=== PATIENT | male | born 1965 | race Native Hawaiian/Other Pacific Islander ===

== ENCOUNTER 2024-01-19 03:08 | Emergency (ER) | payer MEDICAID, SELFPAY ==
[2024-01-19 03:10] VITALS: BMI 24.1
[2024-01-19 03:18] VITALS: BP 168/91; PULSE 78; RESP 18; TEMP 37.1; O2SAT 98
--- NOTE | 2024-01-19 03:48 | XR_ITS ---
Examination: Toes, right foot first digit 3 views Technique: Toes AP oblique lateral 3 views first digit right foot Date and time of exam: January 19, 2024 0409 hrs. Indications: Injury to the foot today with first digit pain. Findings: No fracture or dislocation Impression: No fracture or dislocation
--- NOTE | 2024-01-19 03:55 | PD.EDANKLE ---
Lower Extremity Injury RME/HPI General Chief Complaint: Ankle/Foot Injury Stated Complaint: RT TOE PAIN X 10 MIN Time Seen by Provider: 01/19/24 03:46 Arrival date/time: 01/19/24 03:08 58M with history of HTN, MS, and DM presents to ED with R toe pain after he stubbed it. Limitations: no limitations Related Data Home Medications ?Medication ?Instructions ?Recorded ?Confirmed fingolimod 0.5 mg capsule (Gilenya) 0.5 mg PO QDAY ##0 03/15/17 01/08/20 gabapentin 300 mg capsule 300 mg PO TID #0 caps 03/15/17 01/08/20 glimepiride 1 mg tablet (Amaryl) 1 mg PO DAILY #0 tabs 03/15/17 01/08/20 metformin 500 mg tablet 500 mg PO BIDAC #0 tabs 03/15/17 01/08/20 (Glucophage) cholecalciferol (vitamin D3) 125 125 mcg PO QDAY 01/08/20 01/08/20 mcg (5,000 unit) tablet (Vitamin D3) cyanocobalamin (vitamin B-12) 1,000 mcg PO QDAY 01/08/20 01/08/20 1,000 mcg tablet (Vitamin B-12) lisinopril 2.5 mg tablet 2.5 mg PO QDAY 01/08/20 01/08/20 loratadine 10 mg tablet 10 mg PO QDAY 01/08/20 01/08/20 Previous Rx's ?Medication ?Instructions ?Recorded sulfamethoxazole 800 1 tab PO Q12H #20 tabs 12/24/19 mg-trimethoprim 160 mg tablet (Bactrim DS) docusate sodium 100 mg capsule 100 mg PO BID #30 caps 01/10/20 (Colace) hydrocodone 5 mg-acetaminophen 325 1 tab PO Q8H PRN pain #15 tabs 01/10/20 mg tablet ([place]) ibuprofen 600 mg tablet 600 mg PO Q8H PRN pain (scale 01/10/20 score 4-6) #15 tabs doxycycline monohydrate 100 mg 100 mg PO BID 7 days #14 tabs 01/19/24 tablet Allergies Allergy/AdvReac Type Severity Reaction Status Date / Time Penicillins Allergy Severe Anaphylaxis Verified 01/08/20 08:29 Review of Systems Review of Systems Systems Reviewed: All systems reviewed, normal except as documented Constitutional Constitutional: Reports system reviewed and no additional complaints, except as documented, Denies fever(s) and Denies headache(s) ENT Ears, Nose, Mouth, and Throat: Denies disequilibrium and Denies headache(s) Cardiovascular Cardiovascular: Reports system reviewed and no additional complaints, except as documented, Denies chest pain and Denies dyspnea Respiratory Respiratory: Reports system reviewed and no additional complaints, except as documented, Denies cough and Denies dyspnea Gastrointestinal Gastrointestinal: Reports system reviewed and no additional complaints, except as documented, Denies abdominal pain, Denies nausea and Denies vomiting Musculoskeletal Musculoskeletal: Reports as per HPI and Reports arthralgias Neurologic Neurologic: Reports system reviewed and no additional complaints, except as documented, Denies confusion, Denies disequilibrium and Denies headache(s) Psychiatric Psychiatric: Denies confusion Past Medical History Past Medical History NEUROLOGIC: Positive Neurological Disorders and Multiple Sclerosis (PATIENT HAS DIAGNOSIS OF MS); Negative Seizures or Amyotrophic Lateral Sclerosis (ALS/Verenice Gehrig's) CARDIAC: Positive Cardiac Disorders and Hypertension (HTN); Negative Congestive Heart Failure RESPIRATORY: Negative Chronic Obstructive Pulmonary Disease (COPD) GASTROINTESTINAL: Negative Gastrointestinal Disorders or Hepatitis GENITOURINARY: Negative Genitourinary Disorders or Renal Disease ENDOCRINE: Positive Endocrine Disorders and Diabetes Mellitus Type 2 (ON MEDICATIONS); Negative Diabetes Mellitus Type 1 HEMATOLOGIC: Negative Blood Disorders, Anemia or Clotting Problems PSYCHO/SOCIAL: Negative Depression or Anxiety OTHER HISTORY: Negative Autoimmune Disease, Falls, Blood Transfusions, Blood Transfusion Reaction, Anesthesia Reactions, MRSA, Chicken Pox, Measles, Mumps, Clostridium Difficile or Cancer Family History FAMILY HISTORY: Negative Family Respiratory Disorders, Family Cardiac Disorders, Family Gastrointestinal Problems, Family Cancer, Family Surgery or Family Anesthesia Reaction Surgical History SURGICAL: Negative Cardiac Surgery, Endocrine Surgery, Ear Surgery, Abdominal Surgery, Joint Replacement or Neurologic Surgery Social History SMOKING STATUS: Current every day smoker ED Exam General Limitations: Present no limitations General appearance: Present alert and in no apparent distress Head Head exam: Present atraumatic Eye Eye exam: Present normal appearance, PERRL and EOMI ENT ENT exam: Present normal exam, normal oropharynx and mucous membranes moist Neck Neck exam: Present normal inspection, full ROM and trachea midline Chest Chest inspection: Present normal inspection and symmetric chest wall rise Respiratory Respiratory exam: Present normal lung sounds bilaterally Cardiovascular Cardiovascular exam: Present regular rate, normal rhythm and normal heart sounds Abdominal Exam Abdominal exam: Present soft and normal bowel sounds Extremities Exam Extremities exam: Present full ROM Expanded Lower Extremity Exam Foot/toe exam: Present full ROM (R big toe), tenderness and nail avulsion (partial) Back Exam Back exam: Present normal inspection and full ROM Neurological Exam Neurological exam: Present alert, oriented X3 and CN II-XII intact Psychiatric Psychiatric exam: Present normal affect and normal mood Skin Skin exam: Present warm, dry, intact and normal color Course Quality Measures none Orders Category Date Time Status Wound Care NOW Care 01/19/24 03:48 Active XR toe RT min 2V Stat Exams 01/19/24 03:48 Taken Doxycycline [Vibramycin] Med 01/19/24 04:18 Discontinued 100 mg PO X1 ONE Tet,Diphth,Pertuss(Acell)-Tdap [Boostrix Vacc] Med 01/19/24 03:48 Discontinued 0.5 ml IMI .ONCE ONE cephALEXin [Keflex] Med 01/19/24 04:16 Discontinued 500 mg PO X1 ONE Vital Signs Vital signs: Vital Signs Temperature 98.7 F 01/19/24 03:18 Pulse Rate 78 01/19/24 03:18 Respiratory Rate 18 01/19/24 03:18 Blood Pressure 168/91 H 01/19/24 03:18 Pulse Oximetry (%) 98 01/19/24 03:18 Oxygen Delivery Method Room Air 01/19/24 03:18 O2 at 98% on RA and WNLs Extremity Injury, Lower MDM Narrative MDM Narrative:: 58M with history of HTN, MS, and DM presents to ED with R toe pain after he stubbed it. Physical exam reveals partial nail avulsion of R big toe. Some tenderness. Cap refill normal. ROM normal. Patient is afebrile, calm, and alert. Wet XR no toe fx pending official report. However, given nail avulsion, will be cautious and treat as ungual tuft fx. Tdap and ABX prophylaxis given. Wound cleaned and bandaged. Wayne tape applied. 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 Patient data External records reviewed:: [facility] previous records Clinical information provided by:: patient Social determinants that could affect healthcare access:: none Patient has the following chronic illnesses:: HTN, MS, and DM How is presenting disease/condition affected by chronic disease/condition?: exacerbated by Evaluation data The following diagnostics were reviewed and interpreted by me:: radiology exam(s) Lab and/or radiology exams considered but not ordered:: ordered Interpretation Summary: above Medications / Prescriptions Medications or Prescriptions considered but not ordered:: ordered Medication administrations:: Medication Administration History Discontinued Medications Cephalexin HCl (Cephalexin 250 Mg Capsule) 500 mg PO X1 ONE Stop: 01/19/24 04:17 Last Admin: 01/19/24 04:26 Dose: Not Given Documented By: CVL Non-Admin Reason: Cancelled by Provider Diphtheria/Tetanus/Acell Pertussis (Diphth,Pertuss(Acell),Tet Vac 0.5 Ml Vial) 0.5 ml IMi .ONCE ONE Stop: 01/19/24 03:49 Last Admin: 01/19/24 04:30 Dose: 0.5 ml Documented By: CVL Doxycycline Hyclate (Doxycycline 100 Mg Tablet) 100 mg PO X1 ONE Stop: 01/19/24 04:19 Last Admin: 01/19/24 04:30 Dose: 100 mg Documented By: CVL above Consultations Consultation(s) initiated? (list below): No Diagnosis Extremity Injury, Lower Differential Diagnosis: ankle sprain and strain, acute internal derangement of knee, puncture wound of foot, fracture of toe, ankle fracture and other (nail avulsion) Most likely diagnosis given after review of the tests above:: toe pain and nail avulsion Admission Indicated Admission indicated?: not indicated Admission Request Was there a request for admission?: No Disposition Plan Disposition Plan: Discharge Discharge Attestation Discharge Attestation: The patient and all family members were given an opportunity to ask questions and understood the discharge instructions. Discharge instructions specifically effects, indications for sooner follow up or return to the emergency department, and the expected course of current diagnosis. Patient condition: Stable Discharge Plan Plan Patient Disposition: HOME (Self Care) Disposition Comment: Stable Prescriptions/Referrals Prescriptions/Med Rec: New doxycycline monohydrate 100 mg tablet 100 mg PO BID 7 Days Qty: 14 0RF No Action metformin [Glucophage] 500 MG tablet 500 mg PO BIDAC Qty: 0 glimepiride [Amaryl] 1 MG tablet 1 mg PO DAILY Qty: 0 Gilenya 0.5 MG capsule 0.5 mg PO QDAY Qty: 0 gabapentin 300 MG capsule 300 mg PO TID Qty: 0 sulfamethoxazole-trimethoprim [Bactrim DS] 800-160 mg tablet 1 tab PO Q12H Qty: 20 0RF cyanocobalamin (vitamin B-12) [Vitamin B-12] 1,000 mcg Tablet 1,000 mcg PO QDAY lisinopril 2.5 mg Tablet 2.5 mg PO QDAY loratadine 10 mg Tablet 10 mg PO QDAY cholecalciferol (vitamin D3) [Vitamin D3] 125 mcg (5,000 unit) Tablet 125 mcg PO QDAY hydrocodone-acetaminophen [[place]] 5-325 mg tablet 1 tab PO Q8H MDD 3 PRN (Reason: pain) Qty: 15 0RF ibuprofen 600 mg tablet 600 mg PO Q8H PRN (Reason: pain (scale score 4-6)) Qty: 15 0RF docusate sodium [Colace] 100 mg capsule 100 mg PO BID Qty: 30 0RF Problem List Clinical Impression: Avulsion of nail, Great toe pain Patient/Caregiver Discharge Instructions Additional Instructions: Please follow-up with PCP within 24-48 hours and return immediately if symptoms worsen. If problem persists, recommend outpatient PT and/or MRI follow-up. In the meantime, rest, use ice/heat, and/or compression. Nail may come off eventually. Print Language: Latvian Stand Alone Forms: Patient Portal Info Letter PA/BINDING NICKER Supervising Physician PATRICE/AYESHA Supervising Physician: Dr. Subramanian
[2024-01-19] MEDS: DOXYCYCLINE 100 MG TABLET PO (04:30)
[2024-01-19] MEDS: DIPHTH,PERTUSS(ACELL),TET VAC 0.5 ML VIAL IMi (04:30)
== END 2024-01-19 04:52 | disposition home or self-care (01) ==
LOC: SERX 04:29
PROVIDERS: Emergency Provider Emergency Medicine; PCP Physician Assistant
DX: S91.201A Unspecified open wound of right great toe with damage to nail, initial encounter (principal); I10 Essential (primary) hypertension; E11.9 Type 2 diabetes mellitus without complications; G35 Multiple sclerosis; Z23 Encounter for immunization; F17.210 Nicotine dependence, cigarettes, uncomplicated; W22.8XXA Striking against or struck by other objects, initial encounter; Z88.0 Allergy status to penicillin
CPT/HCPCS: 73660; 90471; 90715; 99283; A9270